=== PATIENT | female | born 1965 | race Caucasian/White ===

== ENCOUNTER → 2022-06-26 17:01 | Outpatient (CLI) | payer OTHER, SELFPAY ==
--- NOTE | 2022-06-26 17:14 | DI.MRI.S_ITS ---
PROCEDURE: MR LUMBAR SPINE WO CON INDICATIONS: intervertebral disc displacement, lumbar region TECHNIQUE: Noncontrast sagittal T1 spin echo and T2 fast echo, sagittal STIR, and T2 fast spin echo through the lumbar spine. In cases with scoliosis, additional coronal T2 fast spin echo may be performed. COMPARISON: [facility] Outside Film, CR, XR LUMBAR SPINE 2 OR 3 VIEWS, 05/27/2022, 9:50. FINDINGS: Image quality: Excellent. Alignment and Curvature: There is minimal S shaped scoliotic curvature. Minimal retrolisthesis can be seen at L5-S1. Bone Marrow: Marrow is of normal overall signal. No acute vertebral body compression fractures. Spinal Cord: Conus medullaris terminates at the L1 level. Visualized cord demonstrates normal signal and size. Paraspinous Soft Tissues: No paravertebral masses. T12-L1: Normal appearance. L1-L2: Normal appearance. L2-L3: Normal appearance. L3-L4: The disc height is well-preserved. Loss of disc signal is seen at this level. Moderate disc bulge is seen, which is eccentric to the left. Mild facet joint hypertrophy is seen. Mild bilateral neural foraminal narrowing is seen. Minimal central canal narrowing is seen. L4-L5: Moderate loss of disc height is seen. Loss of disc signal is seen. Moderate disc bulge is seen, which is eccentric to the right. Moderate facet joint hypertrophy is seen. There is moderate right-sided and mild left-sided neural foraminal narrowing. Moderate central canal narrowing is seen. L5-S1: The disc height is well-preserved. Loss of disc signal is seen at this level. Moderate disc bulge is seen, with a central/left disc protrusion, as on series 8, image 21 and on series 2, image 10. Moderate facet joint hypertrophy is seen. There is moderate right-sided and at least moderate left-sided neural foraminal narrowing. There is a degree of compression seen upon the exiting left L5 nerve root. Moderate central canal narrowing is seen. IMPRESSION: Lumbar spine degenerative changes are seen, which are worst inferiorly. Dictated by: Timothy Santiago M.D. on 06/26/2022 at 17:57 Approved by: Timothy Santiago M.D. on 06/26/2022 at 18:00
== END ==
PROVIDERS: Referring Provider Orthopaedic Surgery Orthopaedic Surgery of the Spine; Visit Provider Orthopaedic Surgery Orthopaedic Surgery of the Spine
DX: M51.26 Other intervertebral disc displacement, lumbar region (principal)
CPT/HCPCS: 72148

== ENCOUNTER 2022-10-19 06:10 | Day surgery (SDC) | payer OTHER, SELFPAY ==
[2022-10-13 08:33] VITALS: BMI 30.7
[2022-10-13 16:44] VITALS: BMI 30.7
[2022-10-19 06:42] VITALS: BMI 31.8
[2022-10-19 06:53] VITALS: BP 149/93; PULSE 71; RESP 16; TEMP 36.4; O2SAT 99
[2022-10-19] MEDS: LACTATED RINGERS 1,000 ML 42 ML IV ×2 (06:56→08:35)
--- NOTE | 2022-10-19 07:22 | SUR.OPER ---
Prone on spine table, head in foam head support, padded chest and pelvic supports, gel pad at knees, lower legs supported by pillows; nipples, genitalia and toes free of pressure, arms secured on foam padded arm boards at <90 degrees abduction. Tape over blanket at thigh secured to table.
[2022-10-19] MEDS: SCOPOLAMINE 1 PATCH TOP (07:32)
--- NOTE | 2022-10-19 07:41 | PM.PREOP ---
Pre-operative Note COVID-19 Criteria for continued procedure: Expected advancement of disease process, Possibility delay results in more complex future surgery or treatment, Increased loss of function, Continuing or worsening of significant or severe pain, Deterioration of the patient's condition or overall health and Delay expected to result in less-positive ultimate med/surg outcome Interval Note History & Physical reviewed/Exam performed by Physician: Yes Changes to H&P: No
[2022-10-19] MEDS: CEFAZOLIN 2 GM/100 ML PREMIX 100 ML IV (07:56)
[2022-10-19] MEDS: BUPIVACAINE 0.25% (PF) 30 ML, EPINEPHrine 0.15 MG INJ (08:20)
--- NOTE | 2022-10-19 09:03 | PM.OP.1 ---
Operative Date/Time/Diagnoses Date of procedure: 10/19/22 Time of procedure: 07:40 Pre-op diagnosis: 1. L5-S1 disc herniation. 2. Lumbar radiculopathy Post-op diagnosis: same Procedure & Clinicians Procedure: 1. L5-S1 left microdiscectomy 2. Utilization of microsurgical technique and operating microscope Same procedure as scheduled: Yes Indications: Patient has been having chronic back pain and worsening lumbar radiculopathy. Patient failed multiple conservative management with worsening pain weakness and numbness in her lower extremity. Patient has been having difficulty performing activity of daily living. After discussing risks benefits of treatment options, patient elected proceed with surgery. Surgeon: Sravanthi Sin Cloth Laminating Supervisor: Dayana Brown Click Yes if Unassisted: No Anesthesia Type: Spinal Operative Notes Closure Type: primary Specimen(s): none sent Estimated Blood Loss (mL): 5 Blood products transfused: none Procedure in detail: Patient was seen in the preoperative area. Risks and benefits of the surgery was discussed with the patient. Informed consent was obtained from the patient and placed in the chart. Surgical site was marked. Patient was taken to the operative room. General anesthesia was administered. Prophylactic antibiotic was given to the patient less than 30 min before the incision was made. Patient was placed into a prone position on the Ronnie table. Patient's back was then prepped and draped in the sterile fashion. Time-out was performed at this time. Using AP and lateral C-arm imaging the interval between L5-S1 was identified and marked on patient's back. A 1 inch incision 1 in from midline was made on the left side. The fascia was incised in line with skin incision. Globus MARS retractors was placed inside the incision and docked onto the L5 lamina. Using microsurgical technique and operating microscope, a L5 laminotomy was performed using a Kerrison rongeur. Liagamentum flavum was resected at the site of the laminotomy. The disc space at L5-S1 was identified. Microdiscectomy was performed by incising the annulus with #11 blade. Microcurettes and pituitary was used to removed herniated disc fragments of disc from the epidural space. After the microdiskectomy was completed, the area medial lateral superior and inferior to the area of the microdiskectomy was inspected and explored using a micro curette. No other impinging structure was identified. The wound was then irrigated with sterile normal saline. 40 mg Depo-Medrol was placed into the epidural space. The deep fascia was closed with 1-0 Vicryl. The subcutaneous tissue was closed with 2-0 Vicryl. The skin was closed with 4-0 Monocryl. Patient tolerated the procedure well. There were no complications. Patient was transferred recovery room in stable condition. Complications: none Post-operative Condition: stable Disposition: PACU Plan for aftercare: Discharge to home
[2022-10-19 09:13] VITALS: BP 111/74; PULSE 85; RESP 10; TEMP 36.4; O2SAT 91
[2022-10-19 09:18] VITALS: BP 107/72; PULSE 79; RESP 15; O2SAT 98
[2022-10-19 09:28] VITALS: BP 115/73; PULSE 75; RESP 10; O2SAT 98
[2022-10-19] MEDS: OXYCODONE IR 5 MG TABLET PO (09:35)
[2022-10-19 09:38] VITALS: BP 119/74; PULSE 78; RESP 10; O2SAT 97
[2022-10-19] MEDS: METOCLOPRAMIDE 10 MG/2 ML INJ 5 MG IV (09:56)
[2022-10-19 10:06] VITALS: BP 118/75; PULSE 64; RESP 16; TEMP 35.7; O2SAT 95
== END 2022-10-19 10:11 | disposition home or self-care (01) ==
PROVIDERS: PCP Ophthalmology; Referring Provider Orthopaedic Surgery Orthopaedic Surgery of the Spine; Visit Provider Orthopaedic Surgery Orthopaedic Surgery of the Spine
PROC: (CPT 63030; principal; 2022-10-19 07:45)
DX: M51.16 Intervertebral disc disorders with radiculopathy, lumbar region (principal)
CPT/HCPCS: 63030; J0171; J0690; J1100; J1170; J2250; J2405; J2704; J2765; J2920; J3010